=== PATIENT | male | born 1950 | race Asian ===

== ENCOUNTER 2018-03-06 18:38 | Inpatient (IN) | payer OTHER, MEDICAID ==
[~2018-03-06] VITALS: Ht 180.3 cm; Wt 84.8 kg
[2018-03-06] MEDS ORDERED: Sodium Chloride 500ML 500 ML IV ONE (18:55)
[2018-03-06 19:21] VITALS: BP 107/66
[2018-03-06 19:37] LABS: BASOPHILS % (AUTO) 1.1 % (0.0-2.0); EOSINOPHILS % (AUTO) 1.2 % (0.0-3.0); HEMATOCRIT 45.2 % (42.0-52.0); MEAN CORPUSCULAR VOLUME 87 FL (80-99); MONOCYTES % (AUTO) 4.2 % (1.0-10.0); NEUTROPHILS % (AUTO) 73.5 % (45.0-75.0); PLATELET COUNT 128 K/UL (150-450); RED BLOOD COUNT 5.18 M/UL (4.70-6.10); RED CELL DISTRIBUTION WIDTH 11.2 % (11.6-14.8); WHITE BLOOD COUNT 12.3 K/UL (4.8-10.8)
[2018-03-06 19:45] LABS: ANION GAP 13 mmol/L (5-15); BLOOD UREA NITROGEN 18 mg/dL (7-18); CALCIUM 8.6 MG/DL (8.5-10.1); CARBON DIOXIDE 25 MMOL/L (21-32); CHLORIDE 101 MMOL/L (98-107); CREATININE 1.1 MG/DL (0.55-1.30); POTASSIUM 3.5 MMOL/L (3.5-5.1); SODIUM 139 MMOL/L (136-145)
[2018-03-06 20:10] LABS: ALANINE AMINOTRANSFERASE 33 U/L (12-78); ALBUMIN 3.8 G/DL (3.4-5.0); ALKALINE PHOSPHATASE 85 U/L (46-116); ASPARTATE AMINO TRANSFERASE 22 U/L (15-37); BILIRUBIN,TOTAL 1.1 MG/DL (0.2-1.0); CREATINE KINASE 118 U/L (26-308)
[2018-03-06 20:12] LABS: BILIRUBIN,DIRECT 0.2 MG/DL (0.0-0.3)
[2018-03-06] MEDS ORDERED: Metoprolol 5mg/5ml Inj IVP ONE (20:30)
[2018-03-06] MEDS ORDERED: UNOBMED (20:37)
[2018-03-06 20:48] LABS: APPEARANCE,URINE CLEAR; BILIRUBIN, URINE NEGATIVE (NEGATIVE); COLOR,URINE PALE YELLOW; GLUCOSE, URINE (UA) NEGATIVE (NEGATIVE); KETONES,URINE NEGATIVE (NEGATIVE); LEUKOCYTE ESTERASE ,URINE NEGATIVE (NEGATIVE); NITRITE,URINE NEGATIVE (NEGATIVE); PH,URINE 6 (4.5-8.0); PROTEIN,URINE 3+ (NEGATIVE); UROBILINOGEN,URINE NORMAL MG/DL (0.0-1.0)
--- NOTE | 2018-03-06 21:36 | Emergency Room Report ---
History of Present Illness General Chief Complaint: Dyspnea/Respdistress Source: Patient, EMS Present Illness HPI 67-year-old male presents ED for shortness of breath. Patient was a massage parlor when he developed sudden shortness of breath a few hours ago. EMS evaluated the patient. Noted crackles bilaterally. Started on CPAP. Upon arrival patient tachycardic, diaphoretic in distress. Denies chest pain. States history of OR previously. Denies fevers or chills. No other aggravating relieving factors. Denies any other associated symptoms Allergies: Coded Allergies: No Known Allergies (Unverified , 03/06/18) Patient History Past Medical History: HTN, OR Past Surgical History: none Pertinent Family History: none Social History: Denies: smoking, alcohol use, drug use Immunizations: UTD Reviewed Nursing Documentation: PMH: Agreed; PSxH: Agreed Nursing Documentation-PMH Past Medical History: No History, Except For Hx Cardiac Problems: Yes - heart attack 2 years ago Review of Systems All Other Systems: negative except mentioned in HPI Physical Exam Vital Signs Date Time Temp Pulse Resp B/P (MAP) Pulse Ox O2 Delivery O2 Flow Rate FiO2 03/06/18 18:32 97.8 165 36 190/156 85 97.9 03/06/18 19:21 Bi-pap Sp02 EP Interpretation: reviewed, normal General Appearance: alert, GCS 15, non-toxic, severe distress Head: normocephalic, atraumatic Eyes: bilateral eye normal inspection, bilateral eye PERRL ENT: hearing grossly normal, normal pharynx, no angioedema, normal voice Neck: full range of motion, supple/symm/no masses Respiratory: chest non-tender, accessory muscle use, crackles, speaking full sentences Cardiovascular #1: no edema, tachycardia Cardiovascular #2: 2+ carotid (R), 2+ carotid (L), 2+ radial (R), 2+ radial (L) , 2+ dorsalis pedis (R), 2+ dorsalis pedis (L) Gastrointestinal: normal bowel sounds, non tender, soft, non-distended, no guarding, no rebound Rectal: deferred Genitourinary: normal inspection, no CVA tenderness Musculoskeletal: back normal, gait/station normal, normal range of motion, non- tender Neurologic: alert, oriented x3, responsive, motor strength/tone normal, sensory intact, speech normal Psychiatric: judgement/insight normal, memory normal, mood/affect normal, no suicidal/homicidal ideation Reflexes: 3+ bicep (R), 3+ bicep (L), 3+ tricep (R), 3+ tricep (L), 3+ knee (R) , 3+ knee (L) Skin: normal color, no rash, warm/dry, well hydrated Lymphatic: no adenopathy Procedures Critical Care Time Critical Care Time i. I feel this is a highly complex case requiring extensive working including EKG/Rhythm strip, Xray/CT/US, Blood/urine lab work, repeat exams while in ED, and administration of strong opiates/narcotics for pain control, admission to hospital or close patient follow up. Total time: 30 min bedside evaluation and treatment excludes procedures (EKG). Reason for critical care: Respiratory distress, tachycardic Possible complications: hypotension, hypertension, OR, shock, arrhythmias, metabolic acidosis, end organ damage, respiratory failure. Interventions: BiPAP, ABG, labs, EKG, chest x-ray, IV fluids, Lopressor, aspirin , antibiotics Course: Patient presenting with respiratory distress. Placed on BiPAP. Chest x -ray shows significant congestion questionable pneumonia. EKG shows A. fib. Given Lopressor. Troponins minimally elevated. lactate > 2, leukocytosis noted. Breathing improved after BiPAP. Given aspirin. Given antibiotics Consultations: nursing staff, EMS, family Performed by: Dr Jaquez Tolerated well condition = critical j. because of unstable vital signs this patient had a condition that could potentially threaten life or limb. I feel this is a critical patient who required my full attention while patient was considered critical. Total Critical Care Time excluding procedures was greater than 35 minutes Medical Decision Making Diagnostic Impression: Primary Impression: A-fib Qualified Codes: I48.91 - Unspecified atrial fibrillation Additional Impressions: Pulmonary edema Qualified Codes: J81.0 - Acute pulmonary edema Respiratory distress ER Course Hospital Course 67-year-old male presents with respiratory distress, accessory muscle use. Diaphoretic Differential diagnoses include: OR/unstable angina, contusion, muscle strain, PTX, rib fracture Clinical course Patient placed on stretcher. on classroom monitor. Patient started on BiPAP. After initial history and physical I ordered labs, EKG, chest x-ray, ABG, IVFS labs reviewed- noted leukocytosis, hemoglobin/hematocrit stable, electrolytes ok , trop 0.185. ABG shows no signficiant hypoxia or hypercapnia Chest x-ray- pulmonary congestion ? pulmoanry edema EKG - afib with RVR, no acute ischemic changes interreted by me given lopressor. given abx. given aspirin On reassessment breathing is markedly improved. Patient resting comfortably Case discussed with Dr. King and he agreed to accept the patient to his service for further care and support I. I feel this is a highly complex case requiring extensive working including EKG/Rhythm strip, Xray/CT/US, Blood/urine lab work, repeat exams while in ED, and administration of strong opiates/narcotics for pain control, admission to hospital or close patient follow up. Diagnosis - afib, pulmonary edema, respiratory distress admitted to SDU in critical condition Labs Test 03/06/18 18:55 03/06/18 19:00 03/06/18 20:33 03/06/18 21:00 Arterial Blood pH 7.346 (7.350-7.450) Arterial Blood Partial Pressure CO2 38.2 mmHg (35.0-45.0) Arterial Blood Partial Pressure O2 246.8 mmHg (75.0-100.0) Arterial Blood HCO3 20.4 mmol/L (22.0-26.0) Arterial Blood Oxygen Saturation 98.9 % (92.0-98.0) Arterial Blood Base Excess -4.7 Tashi Test Positive White Blood Count 12.3 K/UL (4.8-10.8) Red Blood Count 5.18 M/UL (4.70-6.10) Hemoglobin 16.0 G/DL (14.2-18.0) Hematocrit 45.2 % (42.0-52.0) Mean Corpuscular Volume 87 FL (80-99) Mean Corpuscular Hemoglobin 30.8 PG (27.0-31.0) Mean Corpuscular Hemoglobin Concent 35.4 G/DL (32.0-36.0) Red Cell Distribution Width 11.2 % (11.6-14.8) Platelet Count 128 K/UL (150-450) Mean Platelet Volume 9.1 FL (6.5-10.1) Neutrophils (%) (Auto) 73.5 % (45.0-75.0) Lymphocytes (%) (Auto) 20.0 % (20.0-45.0) Monocytes (%) (Auto) 4.2 % (1.0-10.0) Eosinophils (%) (Auto) 1.2 % (0.0-3.0) Basophils (%) (Auto) 1.1 % (0.0-2.0) Sodium Level 139 MMOL/L (136-145) Potassium Level 3.5 MMOL/L (3.5-5.1) Chloride Level 101 MMOL/L (98-107) Carbon Dioxide Level 25 MMOL/L (21-32) Anion Gap 13 mmol/L (5-15) Blood Urea Nitrogen 18 mg/dL (7-18) Creatinine 1.1 MG/DL (0.55-1.30) Estimat Glomerular Filtration Rate > 60 mL/min (>60) Glucose Level 202 MG/DL (74-106) Lactic Acid Level 2.80 mmol/L (0.4-2.0) Calcium Level 8.6 MG/DL (8.5-10.1) Total Bilirubin 1.1 MG/DL (0.2-1.0) Direct Bilirubin 0.2 MG/DL (0.0-0.3) Aspartate Amino Transf (AST/SGOT) 22 U/L (15-37) Alanine Aminotransferase (ALT/SGPT) 33 U/L (12-78) Alkaline Phosphatase 85 U/L (46-116) Total Creatine Kinase 118 U/L (26-308) Creatine Kinase MB 2.0 NG/ML (0.0-3.6) Creatine Kinase MB Relative Index 1.6 Troponin I 0.185 ng/mL (0.000-0.056) Pro-B-Type Natriuretic Peptide 899 pg/mL (0-125) Total Protein 7.5 G/DL (6.4-8.2) Albumin 3.8 G/DL (3.4-5.0) Globulin 3.7 g/dL Albumin/Globulin Ratio 1.0 (1.0-2.7) Urine Color Pale yellow Urine Appearance Clear Urine pH 6 (4.5-8.0) Urine Specific [place] 1.015 (1.005-1.035) Urine Protein 3+ (NEGATIVE) Urine Glucose (UA) Negative (NEGATIVE) Urine Ketones Negative (NEGATIVE) Urine Blood 1+ (NEGATIVE) Urine Nitrite Negative (NEGATIVE) Urine Bilirubin Negative (NEGATIVE) Urine Urobilinogen Normal MG/DL (0.0-1.0) Urine Leukocyte Esterase Negative (NEGATIVE) Urine RBC 0-2 /HPF (0 - 0) Urine WBC 0-2 /HPF (0 - 0) Urine Squamous Epithelial Cells None /LPF (NONE/OCC) Urine Bacteria Occasional /HPF (NONE) EKG Diagnostic Results Rate: tachycardiac Rhythm: other - afib wtih RVR ST Segments: no acute changes ASA given to the pt in ED: Yes Rhythm Strip Diag. Results EP Interpretation: yes Rhythm: no PVC's, no ectopy Chest X-Ray Diagnostic Results Chest X-Ray Diagnostic Results : Chest X-Ray Ordered: Yes # of Views/Limited/Complete: 1 View Indication: Shortness of Breath EP Interpretation: Yes Interpretation: no pneumothorax, other - cardiomegaly. bilateral pulmonary congestion Impression: Other - pulmoanry edema Electronically Signed by: Electronically signed by Aly Jaquez MD Last Vital Signs Date Time Temp Pulse Resp B/P (MAP) Pulse Ox O2 Delivery O2 Flow Rate FiO2 03/06/18 20:23 125 115/61 03/06/18 19:21 36 Bi-pap 03/06/18 19:21 97.9 85 97.9 Status: improved Disposition: ADMITTED INPATIENT Condition: Critical Referrals: [facility],REFERRING (PCP) Aly Jaquez MD Mar 06, 2018 21:36
[2018-03-06 21:49] VITALS: BP 129/66
[2018-03-06 21:50] VITALS: BP 121/66
[2018-03-06] MEDS ORDERED: LIPITOR80 MG ORAL (23:05)
[2018-03-06] MEDS ORDERED: XARELTO20 MG ORAL (23:05)
[2018-03-06] MEDS ORDERED: METOPROLOL SUCC50 MG ORAL (23:05)
[2018-03-06] MEDS ORDERED: VIAGRA100 MG PO (23:05)
[2018-03-06] MEDS ORDERED: METFORMIN HCL500 M4 ORAL (23:05)
[2018-03-06] MEDS ORDERED: RANITIDINE HCL150 M1 ORAL (23:05)
[2018-03-06] MEDS ORDERED: GLIPIZIDE10 MG PO (23:05)
[2018-03-06] MEDS ORDERED: LOSARTAN POTASS50 MG ORAL (23:05)
[2018-03-06] MEDS ORDERED: MULTI VITAMIN1 EACH ORAL (23:07)
[2018-03-06] MEDS ORDERED: VOLTAREN100 G1 TP (23:07)
[2018-03-06] MEDS ORDERED: GLIPIZIDE XL10 MG ORAL (23:20)
[2018-03-07] VITALS (7 sets, daily range): BP systolic 112–141; BP diastolic 60–93
[2018-03-07] MEDS: Xarelto 10mg tab ORAL SCH ×2 (00:20→09:00)
[2018-03-07] MEDS: Metoprolol Succinate XL 25mg tab ORAL SCH ×3 (00:24→17:05)
[2018-03-07 06:06] LABS: HEMATOCRIT 43.4 % (42.0-52.0); HEMOGLOBIN 14.5 G/DL (14.2-18.0); MEAN CORPUSCULAR VOLUME 88 FL (80-99); PLATELET COUNT 80 K/UL (150-450); RED BLOOD COUNT 4.92 M/UL (4.70-6.10); RED CELL DISTRIBUTION WIDTH 11.4 % (11.6-14.8); WHITE BLOOD COUNT 10.3 K/UL (4.8-10.8)
[2018-03-07] MEDS: GlipiZIDE 5mg tab ORAL SCH ×2 (06:12→16:30)
[2018-03-07] MEDS: NovoLOG Insulin Flexpen SUBQ SCH ×4 (06:14→20:33)
--- NOTE | 2018-03-07 06:30 | Consultation ---
DATE OF CONSULTATION: 03/06/2018 CARDIOLOGY CONSULTATION CONSULTING PHYSICIAN: Justo Petty M.D. REQUESTING PHYSICIAN: David King M.D. REASON FOR CONSULT: Elevated troponin level in the setting of rapid atrial fibrillation with ventricular ectopy. HISTORY OF PRESENT ILLNESS: This is a 67-year-old [place] male, who has a known history of ischemic heart disease with prior coronary stents x2 that were placed approximately 2 to 3 years ago. He thinks he had a heart attack in the past and has chest pain every one or two months only that resolve spontaneously. He does have a known history of "irregular heartbeat " and takes a blood thinner. Today, he forgot to take all his medications. He does not usually forget his medications and he describes this is an unusual rare course. He went for a massage this afternoon and felt very short of breath and had palpitations prompting him to come to the hospital. PAST MEDICAL HISTORY: Hypertension, coronary artery disease as described, paroxysmal atrial fibrillation, type 2 diabetes mellitus, hyperlipidemia, and osteoarthritis. ALLERGIES: None. MEDICATIONS: Prior to admission, reviewed and reconciled. FAMILY HISTORY: Not remarkable. SOCIAL HISTORY: He denies smoking, alcohol, or substance abuse. REVIEW OF SYSTEMS: No fevers or chills. No recent upper respiratory infection. No cough or sputum production. No history of thyroid disorder. No history of seizure or stroke. No bleeding problems noted in his stool or urine. No history of prostate cancer or elevated PSA. PHYSICAL EXAMINATION: VITAL SIGNS: Initial blood pressure 190/156, subsequently blood pressure is 115/61, heart rate 108, respiratory rate 19, and afebrile. HEENT: Normocephalic and atraumatic. Conjunctivae pink. Oropharynx clear. NECK: Supple. Jugular venous pressure elevated. No accessory muscle use. LUNGS: With diminished breath sounds and basilar rales. CARDIAC: Irregularly irregular. Normal S1 and S2. A 1/6 systolic murmur at apex. Point of maximal pulse sustained. ABDOMEN: Soft, nontender. No ascites. EXTREMITIES: No clubbing, cyanosis, or edema. LABORATORY AND DIAGNOSTIC DATA: Potassium 3.5, BUN 18, creatinine 1.1, and glucose 202. Lactic acid #1 of 2.8 and #2 of 2.0. Natriuretic peptide 899. Troponin 0.185. Albumin 3.8. White count 12.3 and hemoglobin 16. ABG, 7.35, 38, and 246. Urinalysis with no active sediment. IMPRESSION: 1. Medication noncompliance precipitating rapid atrial fibrillation and an acute coronary syndrome with possible [id number] myocardial infarction. 2. Ischemic cardiomyopathy with prior stent. 3. Type 2 diabetes mellitus, on oral therapy. 4. Lactic acidosis may be due to acute ischemia and component from metformin as well. 5. Nonsustained ventricular ectopy and acute on chronic diastolic congestive heart failure. PLAN: 1. Cardiac monitoring. 2. Beta-blockade. 3. Full anticoagulation with rivaroxaban to continue. 4. Low-dose oral aspirin. 5. Diuresis. 6. Potassium replacement. 7. Titrate antihypertensives. 8. Serial troponin level. 9. Consideration for transfer for cardiac cath. We will follow. Justo Petty M.D. DR: MARIZOL JOB#: [id number] CC:
[2018-03-07 06:37] LABS: ALANINE AMINOTRANSFERASE 28 U/L (12-78); ALBUMIN 3.2 G/DL (3.4-5.0); ALKALINE PHOSPHATASE 73 U/L (46-116); ANION GAP 10 mmol/L (5-15); ASPARTATE AMINO TRANSFERASE 20 U/L (15-37); BILIRUBIN,TOTAL 0.9 MG/DL (0.2-1.0); BLOOD UREA NITROGEN 16 mg/dL (7-18); CALCIUM 8.3 MG/DL (8.5-10.1); CARBON DIOXIDE 24 MMOL/L (21-32); CHLORIDE 104 MMOL/L (98-107); CHOLESTEROL 146 MG/DL (< 200); HDL CHOLESTEROL 29 MG/DL (40-60); POTASSIUM 3.7 MMOL/L (3.5-5.1); SODIUM 138 MMOL/L (136-145); TRIGLYCERIDES 148 MG/DL (30-150)
[2018-03-07 06:59] LABS: CKMB 3.9 NG/ML (0.0-3.6)
--- NOTE | 2018-03-07 08:55 | Diagnostic Imaging Report ---
Indication: Shortness of breath Technique: One view of the chest Comparison: none Findings: The heart is enlarged. There is bilateral interstitial and airspace edema. The pleural spaces are clear. Impression: Cardiomegaly with congestive heart failure
[2018-03-07] MEDS ORDERED: Aspirin EC 81mg tab ORAL SCH (09:00)
[2018-03-07] MEDS: Losartan 50mg tab ORAL SCH ×2 (09:00→20:27)
[2018-03-07] MEDS ORDERED: Xarelto 10mg tab ORAL SCH (09:00)
--- NOTE | 2018-03-07 09:13 | History & Physical ---
History and Physical History & Physicial dict David King MD Mar 07, 2018 09:13
[2018-03-07] MEDS: Nitroglycerin 2% oint pkt TOPIC SCH ×2 (12:30→17:05)
--- NOTE | 2018-03-07 18:45 | History and Physical Report ---
DATE OF ADMISSION: 03/06/2018 CHIEF COMPLAINT: Chest pain and shortness of breath. HISTORY OF PRESENT ILLNESS: This 67-year-old [place] man who has known coronary disease came to the hospital with several minutes of severe shortness of breath, palpitations, and chest pain. He feels better this morning after treatment. He states that he forgot to take his medications yesterday and was found to have rapid atrial fibrillation and severe hypertension. PAST MEDICAL HISTORY: The patient had several coronary stents. He had a negative stress echo in September of this year. He has a history of diabetes, hypertension, hyperlipidemia, paroxysmal atrial fibrillation, BPH. He continues to smoke cigarettes. He has a history of bilateral carotid stenosis, peripheral vascular disease, and Hemoccult-positive stool which has not yet been evaluated fully. He was hospitalized in September with rapid atrial fibrillation as well. Since admission, his troponin charli from 0.18 to 0.5 consistent with NSTEMI. His recent ejection fraction was 62% with left ventricular hypertrophy and left atrial enlargement ALLERGIES: None. MEDICATIONS: Viagra, losartan, diclofenac, ranitidine, metformin, Xarelto, atorvastatin, glipizide, tamsulosin, metoprolol, baby aspirin. FAMILY HISTORY: Negative for premature heart disease. SOCIAL HISTORY: He smokes as noted. He does drink occasionally. He denies drug abuse. 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 REVIEW OF SYSTEMS: Otherwise unremarkable. PHYSICAL EXAMINATION: VITAL SIGNS: Blood pressure was as high as 190/156 but is much better at this time. The heart rate is currently 82 on the monitor in atrial fibrillation. Other vital signs are normal. He is off oxygen with satisfactory saturation. GENERAL: He is well developed and well nourished. HEENT: Head is normocephalic. NECK: No jugular venous distention. CHEST: Few rales and wheezes. CARDIAC: Rhythm is irregular without murmur or gallop. ABDOMEN: Soft and nontender. Liver and spleen not enlarged. EXTREMITIES: No clubbing, cyanosis, or edema. LABORATORY STUDIES: Troponin as noted charli from 0.185 to 0.555, natriuretic peptide is elevated at 1682. LDL is 100. Blood sugar 315. Creatinine 1.0. Hemoglobin is 14.5, and platelets are low at 80,000. Blood gases satisfactory. Urinalysis shows proteinuria, 3+. Chest x-ray shows signs of congestive heart failure. IMPRESSION: 1. NSTEMI. 2. Congestive heart failure, acute. 3. Diabetes, poorly controlled. 4. Hypertension, poorly controlled. 5. Paroxysmal atrial fibrillation. 6. Hyperlipidemia, poorly controlled. 7. Cigarette smoker. PLAN: The patient was seen by Cardiology last night. Serial troponins will be obtained. An echocardiogram is in progress. He may require transfer for cardiac catheterization. He was advised to quit smoking. Thank you. David King M.D. DR: jB JOB#: [id number] CC: Viviana Underwood M.D. ; FAX#: [phone]
[2018-03-07] MEDS ORDERED: Atorvastatin 80mg tab ORAL SCH (21:00)
--- NOTE | 2018-03-07 22:30 | Progress Note ---
DATE: 03/07/2018 CARDIOLOGY PROGRESS NOTE SUBJECTIVE: The patient still notes some shortness of breath and chest heaviness, but feels better today. Monitored rhythm, atrial fibrillation, now rate controlled. OBJECTIVE: VITAL SIGNS: Blood pressure 141/65, pulse 78, respiratory rate 18, and afebrile. LUNGS: Clear. CARDIAC: Irregularly irregular. ABDOMEN: Soft. EXTREMITIES: With trace edema. LABORATORY AND DIAGNOSTIC DATA: White count 10 and hemoglobin 14. Sodium 138, potassium 3.7, bicarbonate 24, BUN 16, creatinine 1, and glucose 315. Troponin up to 0.55 and pro-natriuretic peptide is 1682. IMPRESSION: 1. Acute myocardial infarction that is [id number]. 2. Acute on chronic diastolic congestive heart failure. 3. Paroxysmal atrial fibrillation. 4. Type 2 diabetes mellitus with elevated blood glucose. 5. Nonsustained ventricular ectopy. 6. Lactic acidosis, resolved. 7. History of coronary stent. PLAN: 1. Maximize beta-thee. 2. Continue oral aspirin. 3. Maintain full anticoagulation with rivaroxaban. 4. Additional diuresis with potassium replacement. 5. Transfer to tertiary care facility for cardiac catheterization. Justo Petty M.D. DR: MARIZOL JOB#: [id number] CC:
--- NOTE | 2018-03-09 12:47 | Cardiology Report ---
APPROVED REPORT EXAM: Two-dimensional and M-mode echocardiogram with Doppler and color Doppler. INDICATION Atrial Fibrillation M-Mode DIMENSIONS IVSd2.6 (0.7-1.1cm)Left Atrium (MM)4.8 (1.6-4.0cm) LVDd4.6 (3.5-5.6cm)Aortic Root3.2 (2.0-3.7cm) PWd1.2 (0.7-1.1cm)Aortic Cusp Exc.2.2 (1.5-2.0cm) LVDs2.6 (2.5-4.0cm) PWs2.9 cm Technically difficult study due to poor acoustic windows. Study quality precludes accurate assessment of regional wall motion. Normal left ventricular chamber size. Left ventricular anteroseptal and inferior wall hypokinesis. Left ventricular ejection fraction estimated to be 45 %. Severe left ventricular hypertrophy. Small circumferential pericardial effusion. Mild left atrial enlargement. Right cardiac chamber sizes are within normal limits. Mild focal aortic valve sclerosis with adequate cusp excursion. Mildly thickened mitral valve leaflets with normal excursion. Mild mitral annulus and aortic root calcification. Normal pulmonic valve structure. Normal tricuspid valve structure. IVC dilated at 2.2 cm without physiological collapse, estimated RAP is 15 mmHg. A color flow and spectral Doppler study was performed and revealed: Mild aortic insufficiency. Mild mitral regurgitation. Left ventricular diastolic function could not be determined due to A-Fib. Mild tricuspid regurgitation. Tricuspid systolic velocities suggests peak right ventricular systolic pressure of 49 mmHg, consistent with moderate pulmonary hypertension. No pulmonic regurgitation present.
--- NOTE | 2018-03-10 09:04 | Discharge Summary ---
Discharge Summary Discharge Summary _ DATE OF ADMISSION: 03/06/2018 DATE OF DISCHARGE: 03/07/2018 REASON FOR ADMISSION: 67 years old male with past medical history significant for hypertension, diabetes mellitus, myocardial infarction, history of several coronary stents, paroxysmal atrial fibrillation, hyperlipidemia, peripheral vascular disease, bilateral carotid stenosis, BPH, presented to ED with severe shortness of breath, palpitations and chest pain. Patient had negative stress echo in September of this year. Patient continued to smoke cigarettes. Upon evaluation patient was in respiratory distress, tachycardic , diaphoretic , with blood pressure 190/156, heart rate 165 . EKG revealed atrial fibrillation with rapid ventricular response. Patient required placement on BiPAP 12/5 with FiO2 100%. ABG was stable on current settings. Laboratory workup revealed leukocytosis WBC 12.3, hemoglobin and hematocrit stable, platelets 128. Troponin 0.185. Glucose 202. Lactic acid 2.8 Urinalysis without evidence of UTI . Patient admitted with diagnoses of elevated troponin, possible NSTEMI, acute congestive heart failure, diabetes poorly controlled, hypertension poorly controlled, paroxysmal atrial fibrillation with rapid ventricular response, lactic acidosis, hyperlipidemia, cigarette smoker. 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 Serial troponin were ordered, and second troponin up to 0.555 , consistent with NSTEMI. Telemetry revealed no acute ischemic changes. Patient started on full anticoagulation . Health And Safety Inspector closely followed. Heart rate remained stable . Beta thee dose was maximized. Antiplatelet therapy with aspirin was continued. Topical nitroglycerin provided. Pain management was addressed as needed Patient was on diuresis , and with potassium replacement. Cardiorenal parameters and volumes were closely monitored. Echocardiogram revealed ejection fraction of 45% with evidence of inferior wall hypokinesis, severe left ventricular hypertrophy and right ventricular systolic pressure of 49 consistent with mild pulmonary hypertension. Patient initially was on BiPAP. FiO2 titrated to keep pulse oximetry above 92%. Patient was able to be weaned to oxygen via nasal cannula. Pulmonary toilet provided as needed. Blood sugar was managed with sliding scale of insulin. Statin was continued. Blood pressure was controlled. Patient was counseled on abstinence from smoking . Transfer was arranged to tertiary care facility for cardiac catheterization . Patient subsequently transferred via [facility] ambulance to [facility]. FINAL DIAGNOSES: Acute NM/NSTEMI Acute on chronic diastolic congestive heart failure Diabetes mellitus type 2, poorly controlled Hypertension ,poorly controlled Paroxysmal atrial fibrillation with rapid ventricular response- resolved Hyperlipidemia Lactic acidosis-resolved History of coronary stent DISCHARGE MEDICATIONS: List of medication was sent accepting facility DISCHARGE INSTRUCTIONS: Patient was transferred to [facility] for cardiac catheterization I have been assigned to dictate discharge summary for this account. I was not involved in the patient's management. Arlene Billingsley NP Mar 10, 2018 09:04
== END 2018-03-07 22:50 | disposition critical access hospital, planned readmission (94) | DRG 280 ==
LOC: EDBD 18:38 → EMR 19:09 → EDBEDREQ 19:15 → 2W 19:17 → EDBEDREQ 20:40
PROC: 5A09357 Assistance with Respiratory Ventilation, Less than 24 Consecutive Hours, Continuous Positive Airway Pressure (ICD-10-PCS; principal; 2018-03-06)
DX: I21.4 Non-ST elevation (NSTEMI) myocardial infarction (principal); I50.33 Acute on chronic diastolic (congestive) heart failure; E87.2 Acidosis; I11.0 Hypertensive heart disease with heart failure; E11.65 Type 2 diabetes mellitus with hyperglycemia; I48.0 Paroxysmal atrial fibrillation; E78.5 Hyperlipidemia, unspecified; I25.10 Atherosclerotic heart disease of native coronary artery without angina pectoris; Z95.5 Presence of coronary angioplasty implant and graft; I25.2 Old myocardial infarction; N40.0 Benign prostatic hyperplasia without lower urinary tract symptoms; F17.200 Nicotine dependence, unspecified, uncomplicated; Z91.14 Patient's other noncompliance with medication regimen; M19.90 Unspecified osteoarthritis, unspecified site; I25.5 Ischemic cardiomyopathy; I49.3 Ventricular premature depolarization
CPT/HCPCS: 36415; 36600; 71045; 80053; 80061; 81003; 82248; 82550; 82553; 82803; 82962; 83605; 83880; 84443; 84484; 85007; 85025; 87040; 93005; 93306; 94664; 96365; 96366; 96375; 99291; J1815; J8499